=== PATIENT | male | born 1950 | race Hispanic/Latino ===

== ENCOUNTER 2021-03-04 09:25 | Outpatient (CLI) | payer MEDICARE, BC ==
[2021-03-04 17:08] LABS: SARS-CoV-2 PCR by NAA Not Detected (NotDetected)
== END 2021-03-04 09:26 | disposition home or self-care (01) ==
LOC: CSHLAB 09:25
PROVIDERS: ATTEND Internal Medicine Gastroenterology
DX: Z01.812 Encounter for preprocedural laboratory examination (principal); Z20.822 Contact with and (suspected) exposure to COVID-19; K63.5 Polyp of colon
CPT/HCPCS: U0003; U0005

== ENCOUNTER 2021-03-09 05:45 | Day surgery (SDC) | payer MEDICARE, BC ==
[2021-03-06 13:30] VITALS: BMI 28.7
[2021-03-09] MEDS ORDERED: Lidocaine 1% MPF 2 ML VIAL ONE (06:29)
[2021-03-09] MEDS ORDERED: PROPOFOL 20 ML ONE ×2 (06:58→07:58)
[2021-03-09] MEDS ORDERED: Lidocaine 1% PF 5 ML VIAL ONE (06:59)
[2021-03-09] MEDS ORDERED: PHENYLEPHRINE-NS 100 MCG/ML 10 ML SYRINGE ONE (07:48)
== END 2021-03-09 09:10 | disposition home or self-care (01) ==
LOC: CSHSDC 05:45
PROVIDERS: ATTEND Internal Medicine Gastroenterology
PROC: 0DJD8ZZ Inspection of Lower Intestinal Tract, Via Natural or Artificial Opening Endoscopic (ICD-10-PCS; principal; 2021-03-09)
DX: Z12.11 Encounter for screening for malignant neoplasm of colon (principal); Z86.010 Personal history of colon polyps; K57.30 Diverticulosis of large intestine without perforation or abscess without bleeding; E11.22 Type 2 diabetes mellitus with diabetic chronic kidney disease; I12.9 Hypertensive chronic kidney disease with stage 1 through stage 4 chronic kidney disease, or unspecified chronic kidney disease; N18.9 Chronic kidney disease, unspecified; I25.10 Atherosclerotic heart disease of native coronary artery without angina pectoris; Z85.46 Personal history of malignant neoplasm of prostate
CPT/HCPCS: 82962; G0105; 36416; J2704

== ENCOUNTER 2024-02-14 17:25 | Emergency (ER) | payer MEDICARE, BC ==
[2024-02-14 18:26] LABS: #Basophils 0.04 10x3/uL (0.0-0.2); #Eosinophils 0.08 10x3/uL (0.0-0.5); #Monocytes 0.86 10x3/uL (0.0-1.1); #Neutrophils 13.38 10x3/uL (1.5-8.4); %Basophils 0.3 % (0.0-2.0); %Eosinophils 0.5 % (0.0-6.0); %Lymphocytes 6.9 % (18.0-47.0); %Monocytes 5.5 % (0.0-10.0); %Neutrophils 86.2 % (40.0-75.0); Hemoglobin 12.8 g/dL (13.5-17.5); Mean Corpuscular Hemoglobin 30.3 pg (27.0-33.0); Mean Corpuscular Volume 94.8 fL (81.2-95.1); Mean Platelet Volume 10.3 fL (7.4-10.4); Platelet Count 218 10x3/uL (150-450); RBC Distribution Width 16.3 % (11.5-14.5); Red Blood Cell (RBC) Count 4.22 10x6/uL (4.32-5.72); White Blood Cell (WBC) Count 15.5 10x3/uL (3.5-10.5)
[2024-02-14 18:44] LABS: ALT (SGPT) 46 U/L (8-55); AST (SGOT) 43 U/L (5-34); Albumin 2.8 g/dL (3.4-4.8); Alkaline Phosphatase 182 U/L (40-110); Anion Gap 17 mmol/L (10-20); BUN (Urea Nitrogen) 32 mg/dL (8.4-25.7); Bilirubin, Total 0.5 mg/dL (0.2-1.2); Calc. Creatinine Clearance 0 mL/min (70-130); Calcium 9.1 mg/dL (7.8-10.44); Carbon Dioxide 28 mmol/L (23-31); Chloride 93 mmol/L (98-107); Estimated GFR 13; Globulin 5.1 g/dL (2.4-3.5); Glucose 183 mg/dL (83-110); Potassium 4.1 mmol/L (3.5-5.1); Protein, Total 7.9 g/dL (5.8-8.1); Sodium 134 mmol/L (136-145)
[2024-02-14] MEDS ORDERED: Piperacillin/Tazobactam 3.375 GM VIAL ONE (19:50)
[2024-02-14 19:54] LABS: Bilirubin Neg (Negative); Blood, Urine 50 (Negative); Clarity Cloudy (Clear); Glucose, Urine (Dipstick) Normal (Negative); Ketone, Urine Negative (Negative); Leukocyte 500 (Negative); Nitrite Negative (Negative); Protein, Urine (Dipstick) 500 mg/dl (Neg-Trace); Urobilinogen Normal mg/dL (Less than 2)
[2024-02-14 20:19] LABS: WBC/HPF 21-50 HPF (0-3)
[2024-02-14 20:21] LABS: Bacteria/HPF 3+ HPF (None Seen); Mucous/LPF 4+ LPF (<2+)
[2024-02-14 20:46] LABS: CAUTI Indications for Culture Pelvic or flank pain
[2024-02-14 20:47] LABS: Urine Culture Reflex Yes Yes
[2024-02-14] MEDS ORDERED: Vancomycin 1 GM VIAL ONE (20:56)
== END 2024-02-14 22:10 | disposition short-term general hospital (02) ==
LOC: CSHERS 17:25
DX: E11.621 Type 2 diabetes mellitus with foot ulcer (principal); L97.519 Non-pressure chronic ulcer of other part of right foot with unspecified severity; I12.9 Hypertensive chronic kidney disease with stage 1 through stage 4 chronic kidney disease, or unspecified chronic kidney disease; N18.9 Chronic kidney disease, unspecified; E11.22 Type 2 diabetes mellitus with diabetic chronic kidney disease
CPT/HCPCS: 36415; 71045; 80053; 81001; 83605; 84145; 85025; 86140; 87040; 87086; J2543; J3370